=== PATIENT | female | born 1960 | race African-American/Black ===

== ENCOUNTER 2019-10-20 07:55 | Emergency (ER) | payer BC, OTHER ==
--- NOTE | 2019-10-20 08:59 | ER Document Report ---
ED Extremity Problem, Upper - General Chief Complaint: Shoulder Pain Stated Complaint: LEFT AMR PAIN Time Seen by Provider: 10/20/19 08:07 Primary Care Provider: [facility] [Provider Group] - Follow up tomorrow (Call the office tomorrow morning to schedule an appointment in the next 1 to 2 days.) Mode of Arrival: Ambulatory Information source: Patient Notes: This 59-year-old female patient comes emergency room complaining of 2 to 3-week history of pain in her left shoulder. She notes that it is very painful to lift her arm up to pressure hair. She did have rotator cuff surgery on her right shoulder in the past and was concerned this may be the same problem. There is no history of injury to the left shoulder. She has been trying Motrin and states that the benefit is starting to wear off. - Related Data Allergies/Adverse Reactions: No Known Allergies Allergy (Verified 10/20/19 08:10) Past Medical History - General Information source: Patient - Social History Smoking Status: Current Every Day Smoker Cigarette use (# per day): Yes Chew tobacco use (# tins/day): No Smoking Education Provided: No Drug Abuse: None Lives with: Spouse/Significant other Family History: Reviewed & Not Pertinent Patient has suicidal ideation: No Patient has homicidal ideation: No - Medical History Medical History: Negative Past Surgical History: Reports: Hx Hysterectomy, Hx Orthopedic Surgery - Right rotator cuff surgery Review of Systems - Review of Systems Constitutional: No symptoms reported EENT: No symptoms reported Cardiovascular: No symptoms reported Respiratory: No symptoms reported Gastrointestinal: No symptoms reported Genitourinary: No symptoms reported Female Genitourinary: Post menopausal Musculoskeletal: See HPI, Joint pain - Left shoulder pain Skin: No symptoms reported Hematologic/Lymphatic: No symptoms reported Neurological/Psychological: No symptoms reported Physical Exam - Vital signs Vitals: Temp Pulse Resp BP Pulse Ox 97.5 F 95 18 158/92 H 97 10/20/19 08:04 10/20/19 08:04 10/20/19 08:04 10/20/19 08:04 10/20/19 08:04 - General General appearance: Appears well, Alert In distress: None - HEENT Head: Normocephalic, Atraumatic Eyes: Normal Pupils: PERRL - Respiratory Respiratory status: No respiratory distress - Cardiovascular Rhythm: Regular - Abdominal Inspection: Normal - Back Back: Normal - Extremities General upper extremity: Other - Left shoulder is tender to palpate under the acromial region. Pain is made much worse by active or passive abduction of the shoulder. There is minimal discomfort to flex extend, internally or externally rotate the shoulder with the elbow at the patient's side. General lower extremity: Normal inspection - Neurological Neuro grossly intact: Yes - Psychological Associated symptoms: Normal affect, Normal mood - Skin Skin Temperature: Warm Skin Moisture: Dry Skin Color: Normal Course - Vital Signs Vital signs: Temp Pulse Resp BP Pulse Ox 98.2 F 82 16 148/99 H 98 10/20/19 09:58 10/20/19 09:58 10/20/19 09:58 10/20/19 09:58 10/20/19 09:58 - Diagnostic Test Radiology reviewed: Image reviewed - Left shoulder x-ray does not show any calcifications in the subacromial region or any other abnormalities. Discharge - Discharge Clinical Impression: Subacromial bursitis of left shoulder joint Condition: Stable Disposition: HOME, SELF-CARE Additional Instructions: Bursitis You have been diagnosed as having bursitis. Bursitis is an inflammation of a fluid pouch (bursa) found near joints. This is usually due to repeated minor irritation, or pressure directly on the bursa. On occasion, the bursitis can be due to infection (your doctor has checked for this). Sometimes the doctor decides to remove the fluid from the bursa with a needle. This may be to examine the fluid for infection or to ease the pressure caused by the fluid. The usual treatment is rest, local warmth, (or cold if the bursitis is caused by an acute injury), and antiinflammatory medication. Occasionally, an injection of cortisone is necessary. You should call the doctor for re-examination if the pain increases significantly, or if the area becomes severely swollen and red, or fever develops. Your evaluation suggests that you have subacromial bursitis in the left shoulder. Continue taking ibuprofen 400 mg every 6 hours. Use moist heat to the shoulder. Avoid lifting your arm up in the motion that makes the pain worse. Call [facility] for surgery tomorrow morning to schedule appointment in the next 1 to 2 days for evaluation for bursa injection. RETURN TO THE EMERGENCY ROOM IF ANY NEW OR WORSENING SYMPTOMS. Referrals: [facility] [Provider Group] - Follow up tomorrow (Call the office tomorrow morning to schedule an appointment in the next 1 to 2 days.)
--- NOTE | 2019-10-20 09:48 | RADIOLOGY REPORT (SQ) ---
EXAM DESCRIPTION: SHOULDER LEFT 2 OR MORE VIEWS COMPLETED DATE/TIME: 10/20/2019 9:18 am REASON FOR STUDY: Subacromial bursitis COMPARISON: None. NUMBER OF VIEWS: Three views. TECHNIQUE: Internal rotation, external rotation, and Y view images acquired of the left shoulder. LIMITATIONS: None. FINDINGS: MINERALIZATION: Normal. BONES: No acute fracture. No worrisome bone lesions. JOINTS: No dislocation. VISUALIZED LUNGS AND RIBS: No pneumothorax. No rib fracture. SOFT TISSUES: No radiopaque foreign body. OTHER: No other significant finding. IMPRESSION: NEGATIVE STUDY OF THE LEFT SHOULDER. NO RADIOGRAPHIC EVIDENCE OF ACUTE INJURY. TECHNICAL DOCUMENTATION: JOB ID: [id number] [employer]- All Rights Reserved Reading location - IP/workstation name: [email or web address]
[2019-10-20 10:00] VITALS: BP 148/99
== END 2019-10-20 09:58 | disposition home or self-care (01) ==
LOC: ER 07:55
DX: M75.52 Bursitis of left shoulder (principal); M25.512 Pain in left shoulder; F17.210 Nicotine dependence, cigarettes, uncomplicated; Z98.890 Other specified postprocedural states
CPT/HCPCS: 99283

== ENCOUNTER 2020-02-12 06:41 | Day surgery (SDC) | payer BC, OTHER ==
[~2020-02-12 06:41] MED LIST: CEFAZOLIN 1 GM/D5W RTU 1 GM/50 ML RTUPB IV PRN; LACTATED RINGERS 1000 ML IV PRN; LIDOCAINE 0.5% INJ-PF (5 MG/ML) 50 ML SDV SUBCUT PRN
[2020-02-12] MEDS ORDERED: ONDANSETRON HCL INJ/PF 4 MG/2 ML SDV ONE (06:45)
[2020-02-12] MEDS ORDERED: PROPOFOL INJ 200 MG/20 ML VIAL IV ONE (06:46)
[2020-02-12] MEDS ORDERED: SUCCINYLCHOLINE CHLORIDE INJ 200 MG/10 ML VIAL ONE (06:46)
[2020-02-12] MEDS ORDERED: MIDAZOLAM 2 MG/2 ML INJ ONE (06:46)
[2020-02-12] MEDS ORDERED: LIDOCAINE 2% INJ-PF (100 MG/5 ML) SYRINGE ONE (06:46)
[2020-02-12] MEDS ORDERED: DEXMEDETOMIDINE INJ 80 MCG/20 ML VIAL IV ONE (06:47)
[2020-02-12] MEDS ORDERED: FENTANYL CITRATE INJ/PF 100 MCG/2 ML AMPUL ONE (06:47)
[2020-02-12] MEDS ORDERED: NORMAL SALINE INJ/PF 0.9% 10 ML SDV ONE (07:20)
[2020-02-12] MEDS ORDERED: LIDOCAINE 2% INJ (20 MG/ML) 20 ML MDV ONE (07:20)
[2020-02-12] MEDS ORDERED: BUPIVACAINE HCL 0.5 % INJ/PF 30 ML SDV ONE (07:20)
[2020-02-12] MEDS ORDERED: POLYMYXIN B SULFATE INJ 500000 UNIT VIAL ONE (07:20)
[2020-02-12] MEDS ORDERED: BACITRACIN INJ 50,000 UNIT VIAL ONE (07:20)
--- NOTE | 2020-02-12 09:30 | Operative Report ---
Operative Report DATE OF SURGERY: 02/12/20 PREOPERATIVE DIAGNOSIS: Sesamoiditis left hallux. POSTOPERATIVE DIAGNOSIS: Sesamoiditis left hallux. OPERATION: Excision of sesamoid bone IPJ left hallux. SURGEON: RA DEE PERIOPERATIVE TECH: VANESSA MOSQUERA ANESTHESIA: LMAC TISSUE REMOVED OR ALTERED: Sesamoid bone. COMPLICATIONS: None. ESTIMATED BLOOD LOSS: Less than 0.1 mL. INTRAOPERATIVE FINDINGS: Enlarged sesamoid bone left hallux. PROCEDURE: Following induction of IV and regional local anesthesia the left foot and leg were prepped and draped in the usual sterile manner. A pneumatic tourniquet was placed around the left ankle and inflated to 250 mmHg after exsanguination of the limb via Esmarch bandage. The following surgical procedure was then performed: Excision of sesamoid bone interphalangeal joint left hallux. An x-ray was taken of the left hallux to ensure that the incision was made at the sesamoid bone was present. Attention was then directed to the medial aspect of the left hallux where an approximately 3 cm linear incision was made. The incision was deepened via sharp dissection, all bleeders were clamped and bovied as necessary for the purposes of hemostasis. A capsular incision was made in the same manner as the original skin incision. This then brought into view the sesamoid bone which was sharply incised and removed in toto from the wound. The sesamoid measured 1 cm x 1.5 cm. The flexor hallucis longus tendon was inspected and it was noted that it was intact and had not been violated. The area was then flushed with copious amounts of an antibacterial saline solution. An x-ray was taken to ensure that the entire sesamoid had been removed. The capsule was then coaptated and maintained utilizing simple interrupted sutures of 3-0 Vicryl. The subcutaneous tissue was then coaptated and maintained utilizing simple interrupted sutures of 4-0 Vicryl. The skin was coaptated and maintained utilizing horizontal mattress sutures of 5-0 nylon. The foot was then cleansed with an alcohol foam. A dry sterile dressing was applied consisting of Broderick silk, 4 x 4's, conform, and Kerlix. The pneumatic tourniquet was released, it was noted that all digits were warm and viable, the patient was transferred to the recovery room.
--- NOTE | 2020-02-12 09:35 | PDOC DISCHARGE SUMMARY ---
Discharge Summary-[facility] Discharge Summary: Date of admission: February 12, 2020. Date of discharge: February 12, 2020. Preoperative diagnosis: Sesamoiditis left hallux. Surgical procedure: Excision of sesamoid bone IPJ left hallux. Postoperative diagnosis: Sesamoiditis left hallux. Surgeon: Constanza Carreno D.P.M. Line Controller: Nilesh Rosario D.P.M. The patient was admitted to [facility] [place] [facility] with a chief complaint of a painful area under her left big toe. X-rays show that there was a sesamoid at the interphalangeal joint of the left hallux. Patient decided that she wanted to have this problem surgically corrected. She stated she did not want to just take some medication because she knew it would not get rid of the problem. She underwent the above surgical procedure without any complications. She was discharged from [facility] with postoperative instructions, postop shoe, and an ice pack. Postoperative medications were E scribed to [facility] on [address] consisting of Percocet 5/325 mg #20 and promethazine 25 mg #10. She was given a follow-up appointment in the doctor's office in 1 week.
--- NOTE | 2020-02-12 10:53 | RADIOLOGY REPORT (SQ) ---
EXAM DESCRIPTION: NO CHG FLUORO; FOOT LEFT 2 VIEWS COMPLETED DATE/TIME: 02/12/2020 10:24 am; 02/12/2020 10:27 am REASON FOR STUDY: LEFT FOOT SESMOIDECTOMY ASSISTED WITH FLUOROSCOPY IN SURGERY M77.8 OTHER ENTHESOP ATHIES, NOT ELSEWHERE CLASSIFIED COMPARISON: None. FLUOROSCOPY TIME: 3 seconds 1 images saved to PACS. TECHNIQUE: Intra-operative images acquired during surgical procedure to evaluate progress. NUMBER OF IMAGES: 1 image LIMITATIONS: None. FINDINGS: Limited fluoroscopic images obtained to evaluate progress. Please see operative report fo r detailed description. IMPRESSION: IMAGE(S) OBTAINED DURING PROCEDURE. COMMENT: Quality ID 145: Final reports for procedures using fluoroscopy that document radiation exp osure indices, or exposure time and number of fluorographic images (if radiation exposure indices are not available) Please consult full operative report of the attending physician for description of the procedure. TECHNICAL DOCUMENTATION: JOB ID: [id number] 2010 [employer]- All Rights Reserved Reading location - IP/workstation name: [email or web address]
--- NOTE | 2020-02-12 10:53 | RADIOLOGY REPORT (SQ) ---
EXAM DESCRIPTION: NO CHG FLUORO; FOOT LEFT 2 VIEWS COMPLETED DATE/TIME: 02/12/2020 10:24 am; 02/12/2020 10:27 am REASON FOR STUDY: LEFT FOOT SESMOIDECTOMY ASSISTED WITH FLUOROSCOPY IN SURGERY M77.8 OTHER ENTHESOP ATHIES, NOT ELSEWHERE CLASSIFIED COMPARISON: None. FLUOROSCOPY TIME: 3 seconds 1 images saved to PACS. TECHNIQUE: Intra-operative images acquired during surgical procedure to evaluate progress. NUMBER OF IMAGES: 1 image LIMITATIONS: None. FINDINGS: Limited fluoroscopic images obtained to evaluate progress. Please see operative report fo r detailed description. IMPRESSION: IMAGE(S) OBTAINED DURING PROCEDURE. COMMENT: Quality ID [id number]: Final reports for procedures using fluoroscopy that document radiation exp osure indices, or exposure time and number of fluorographic images (if radiation exposure indices are not available) Please consult full operative report of the attending physician for description of the procedure. TECHNICAL DOCUMENTATION: JOB ID: [id number] 2010 [employer]- All Rights Reserved Reading location - IP/workstation name: [email or web address]
== END 2020-02-12 09:49 | disposition home or self-care (01) ==
LOC: SC 06:41
PROVIDERS: ATTEND Podiatrist Foot Surgery
DX: M25.872 Other specified joint disorders, left ankle and foot (principal); F17.210 Nicotine dependence, cigarettes, uncomplicated
CPT/HCPCS: 73620; 01480; 28315; J2250; J3490 ×6; J0690; J3010; J2001; J2405; J2704; J0330